=== PATIENT | male | born 1950 | race African-American/Black ===

== ENCOUNTER 2021-03-28 18:24 | Inpatient (IN) | payer MEDICARE, MEDICAID ==
[~2021-03-28] VITALS: Ht 180.3 cm; Wt 69.2 kg
[2021-03-28] MEDS ORDERED: ondansetron/PF 4mg/2ml inj IV ONE (23:50)
[2021-03-28] MEDS ORDERED: normal saline 1000ML IV soln IVB ONE (23:50)
[2021-03-28] MEDS ORDERED: morphine 4 MG/ML inj SYRINge IV PRN (23:50)
[2021-03-29] VITALS (13 sets, daily range): BP systolic 130–154; BP diastolic 83–90
[2021-03-29 00:43] LABS: BASOPHILS # (AUTO) 0.1 X10'3 (0-0.2); BASOPHILS % (AUTO) 0.9 % (0-1); EOSINOPHILS # (AUTO) 0.2 X10'3 (0-0.9); EOSINOPHILS % (AUTO) 3.2 % (0-6); HEMATOCRIT 41.7 % (42.0-52.0); HEMOGLOBIN 14.1 g/dl (14.0-17.9); LYMPHOCYTES # (AUTO) 1.4 X10'3 (1.1-4.8); LYMPHOCYTES % (AUTO) 24.7 % (21-51); MEAN CORPUSCULAR HEMOGLOBIN 33.4 PG (27.0-31.0); MEAN CORPUSCULAR HGB CONC 33.7 g/dL (33.0-36.5); MEAN CORPUSCULAR VOLUME 99.1 FL (78-98); MEAN PLATELET VOLUME 7.9 FL (7.4-10.4); MONOCYTES # (AUTO) 0.8 X10'3 (0-0.9); MONOCYTES % (AUTO) 14.2 % (2-12); NEUTROPHILS # (AUTO) 3.2 X10'3 (1.8-7.7); PLATELET COUNT 223 X10'3 (140-440); RED BLOOD COUNT 4.21 X10'6 (4.70-6.10); RED CELL DISTRIBUTION WIDTH 14.3 % (11.5-14.5); WHITE BLOOD COUNT 5.7 X10'3 (4.5-11.0)
[2021-03-29 00:46] LABS: ALANINE AMINOTRANSFERASE 29 U/L (12-78); ALBUMIN 3.2 G/DL (3.4-5.0); ALBUMIN/GLOBULIN RATIO 0.8 (1.1-1.5); ALKALINE PHOSPHATASE 107 IU/L (46-116); ANION GAP 6 (8-16); ASPARTATE AMINO TRANSFERASE 26 U/L (10-37); BILIRUBIN,TOTAL 0.2 MG/DL (0.1-1.0); BLOOD UREA NITROGEN 18 MG/DL (7-18); BUN/CREATININE RATIO 16.5 (5.4-32.0); CALCIUM 8.7 MG/DL (8.5-10.1); CHLORIDE 109 MMOL/L (99-107); CREATININE 1.09 MG/DL (0.60-1.10); GLUCOSE 109 MG/DL (70-104); POTASSIUM 4.3 MMOL/L (3.5-5.1); SODIUM 144 MMOL/L (135-145); TOTAL CARBON DIOXIDE 29.1 MMOL/L (24-32); TOTAL PROTEIN 7.4 G/DL (6.4-8.2); eGFR 67 ML/MIN
[2021-03-29 00:50] LABS: LIPASE 321 U/L (73-393)
[2021-03-29 01:41] LABS: CLARITY,URINE CLEAR (Clear); COLOR,URINE YELLOW (Yellow); GLUCOSE, URINE NEGATIVE (Neg); KETONES,URINE NEGATIVE (Neg); LEUKOCYTE ESTERASE ,URINE NEGATIVE (Neg); NITRITES, URINE NEGATIVE (Neg); OCCULT BLOOD,URINE NEGATIVE (Neg); PH,URINE 5.5 (4.8-8.0); PROTEIN,URINE NEGATIVE (Neg); UROBILINOGEN,URINE 0.2 E.U/dL (0.2-1.0)
[2021-03-29 01:42] LABS: UA COLLECTION TYPE CLN CATCH MIDSTREAM
[2021-03-29 02:12] LABS: APTT 28 SECONDS (22-32)
[2021-03-29] MEDS ORDERED: ondansetron 4mg rapidly disintigrating tab PO PRN (04:05)
[2021-03-29] MEDS ORDERED: bisacodyl 10mg suppository rectal RC PRN (04:05)
[2021-03-29] MEDS ORDERED: diphenhydrAMINE 50 mg/ml inj IV PRN (04:05)
[2021-03-29] MEDS ORDERED: HYDROcodone/acetaminophen 10/325mg tab PO PRN (04:05)
[2021-03-29] MEDS ORDERED: acetaminophen 325mg tablet PO PRN ×2 (04:05)
[2021-03-29] MEDS ORDERED: morphine 2 MG/ML inj. syringe IV PRN ×3 (04:05→05:05)
[2021-03-29] MEDS ORDERED: diphenhydrAMINE 25mg capsule PO PRN (04:05)
[2021-03-29] MEDS ORDERED: acetaminophen 650mg rectal suppository RC PRN (04:05)
[2021-03-29] MEDS ORDERED: ondansetron/PF 4mg/2ml inj IV PRN ×2 (04:05→05:05)
[2021-03-29] MEDS ORDERED: mag hydrox/Alum hydrox/simeth 30ml oral suspension PO PRN (04:05)
[2021-03-29] MEDS ORDERED: HYDROcodone/acetaminophen 5mg/325mg tablet PO PRN (04:05)
[2021-03-29] MEDS ORDERED: magnesium hydroxide 30ml (MOM) UD suspension PO PRN (04:05)
[2021-03-29 05:01] LABS: MAGNESIUM 2.1 MG/DL (1.5-2.4)
[2021-03-29] MEDS ORDERED: ringers solution, lacted 1,000 ML IV SCH (05:05)
[2021-03-29] MEDS ORDERED: fentaNYL/PF 50MCG/1 ML 2ML syringe IV PRN ×2 (05:05)
[2021-03-29] MEDS ORDERED: hydrALAZINE 20mg/ml inj. IV PRN (05:05)
[2021-03-29] MEDS ORDERED: labetalol 20mg/4ml (5mg/ml) syringe IV PRN (05:05)
[2021-03-29] MEDS ORDERED: morphine 4 MG/ML inj SYRINge IV PRN (05:05)
[2021-03-29] MEDS: dextrose 5%-1/2 normal saline 1,000 ML IV SCH ×2 (05:15→14:05)
[2021-03-29] MEDS ORDERED: midazolam 1 mg/ML 2ml injection ONE (05:42)
[2021-03-29] MEDS ORDERED: fentaNYL/PF 50MCG/1 ML 2ML syringe ONE (05:42)
[2021-03-29] MEDS ORDERED: rocuronium 10mg/ml inj IV ONE (05:44)
[2021-03-29] MEDS ORDERED: propofol inj 20 ML IV ONE (05:44)
[2021-03-29] MEDS ORDERED: ondansetron/PF 4mg/2ml inj ONE (05:44)
[2021-03-29] MEDS ORDERED: LIDOcaine 2% (20mg/ml) 5ml vial ONE (05:44)
[2021-03-29] MEDS ORDERED: glycopyrrolate 0.2mg/ml inj ONE (05:44)
[2021-03-29] MEDS ORDERED: neostigmine methylsulfate 1 MG/ML 10ml vial ONE (06:08)
[2021-03-29] MEDS ORDERED: PHENYLephrine 10mg/ml 5ml injection IV ONE (06:08)
[2021-03-29] MEDS ORDERED: sevoflurane 250ml liquid IH ONE (06:08)
[2021-03-29] MEDS ORDERED: dexamethasone sod phosphate 10mg/ml inj ONE (06:08)
[2021-03-29] MEDS ORDERED: ceFAZolin 1000mg inj ONE ×2 (06:15)
[2021-03-29] MEDS ORDERED: BUPIVAcaine/PF 2.5mg/ml (0.25%) 10ml vial ONE (06:30)
[2021-03-29] MEDS ORDERED: ePHEDrine 50MG/ML INJ. ONE (06:31)
--- NOTE | 2021-03-29 07:27 | NUR ---
Received from OR via BED. 20G RIGHT F/A RUNNING LR, LAP SITES X 2 WITH AMADOU AND DERMABOUND CDI. , accompanied by Anesthesiologist DR MOHAMUD AND CREATIVE ARTS THERAPISTJARETT CALLE. and report given by Anesthesiolgist. Addendum: 03/29/21 at 0744 by Moraima Thacker RN Amended: Links added.
[2021-03-29] MEDS: docusate sod 100mg capsule PO SCH ×2 (08:00→20:54)
[2021-03-29] MEDS: nicotine 21mg patch - 24 hr TD SCH (08:00)
[2021-03-29] MEDS: pantoprazole 40MG/NS 100ML BAG 100 ML IV SCH (08:00)
--- NOTE | 2021-03-29 09:17 | NUR ---
PATIENT HAS MET ALL CRITERIA FOR TRANSFER TO ROOM. VSS. LAP SITES X 2 WITH AMADOU AND DERMABOND CDI. BED LOW, CALL LIGHT PRESENT AND 2 RAILS UP. REPORT HAS BEEN CALLED. ALL QUESTIONS ANSWERED TO ACCEPTING RN. KAREN DENSON AT AND CARE TRANSFERRED Addendum: 03/29/21 at 0932 by Moraima Thacker RN Amended: Links added.
[2021-03-29] MEDS ORDERED: temazepam 15mg capsule PO PRN (21:00)
[2021-03-30] VITALS: BP 131/85
[2021-03-30] MEDS: dextrose 5%-1/2 normal saline 1,000 ML IV SCH ×2 (00:05→09:05)
[2021-03-30 04:00] VITALS: BP 124/70
--- NOTE | 2021-03-30 06:31 | NUR ---
pt ambulated in hallways
[2021-03-30 07:09] LABS: BASOPHILS % (AUTO) 0.2 % (0-1); EOSINOPHILS % (AUTO) 0.3 % (0-6); HEMATOCRIT 36.8 % (42.0-52.0); HEMOGLOBIN 12.6 g/dl (14.0-17.9); LYMPHOCYTES # (AUTO) 0.9 X10'3 (1.1-4.8); LYMPHOCYTES % (AUTO) 10.7 % (21-51); MEAN CORPUSCULAR HEMOGLOBIN 33.8 PG (27.0-31.0); MEAN CORPUSCULAR HGB CONC 34.2 g/dL (33.0-36.5); MEAN CORPUSCULAR VOLUME 98.8 FL (78-98); MEAN PLATELET VOLUME 7.8 FL (7.4-10.4); MONOCYTES # (AUTO) 0.8 X10'3 (0-0.9); MONOCYTES % (AUTO) 10.2 % (2-12); NEUTROPHILS # (AUTO) 6.3 X10'3 (1.8-7.7); NEUTROPHILS % (AUTO) 78.6 % (42-75); PLATELET COUNT 233 X10'3 (140-440); RED BLOOD COUNT 3.73 X10'6 (4.70-6.10); RED CELL DISTRIBUTION WIDTH 14.2 % (11.5-14.5)
[2021-03-30 07:19] LABS: ALANINE AMINOTRANSFERASE 21 U/L (12-78); ALBUMIN 2.7 G/DL (3.4-5.0); ALBUMIN/GLOBULIN RATIO 0.8 (1.1-1.5); ALKALINE PHOSPHATASE 60 IU/L (46-116); ANION GAP 4 (8-16); ASPARTATE AMINO TRANSFERASE 22 U/L (10-37); BILIRUBIN,TOTAL 0.4 MG/DL (0.1-1.0); BLOOD UREA NITROGEN 11 MG/DL (7-18); CALCIUM 8.4 MG/DL (8.5-10.1); CHLORIDE 107 MMOL/L (99-107); CREATININE 0.92 MG/DL (0.60-1.10); GLUCOSE 114 MG/DL (70-104); POTASSIUM 3.8 MMOL/L (3.5-5.1); SODIUM 140 MMOL/L (135-145); TOTAL CARBON DIOXIDE 29.2 MMOL/L (24-32); TOTAL PROTEIN 6.3 G/DL (6.4-8.2); eGFR > 90 ML/MIN
[2021-03-30 08:00] VITALS: BP 118/66
[2021-03-30] MEDS: docusate sod 100mg capsule PO SCH (08:00)
[2021-03-30] MEDS: nicotine 21mg patch - 24 hr TD SCH (08:00)
[2021-03-30] MEDS: pantoprazole 40MG/NS 100ML BAG 100 ML IV SCH (08:00)
--- NOTE | 2021-03-30 09:23 | NUR ---
A&Ox4 pt refused assessment
== END 2021-03-30 09:07 | disposition home or self-care (01) | DRG 351 ==
LOC: ER 18:25 → ED HOLD 03-29 04:07 → SUR 3N 03-29 09:20
PROVIDERS: ADMIT Family Medicine; ATTEND Family Medicine
PROC: 0YU54JZ Supplement Right Inguinal Region with Synthetic Substitute, Percutaneous Endoscopic Approach (ICD-10-PCS; principal; 2021-03-29 06:08)
DX: K40.30 Unilateral inguinal hernia, with obstruction, without gangrene, not specified as recurrent (principal); N17.9 Acute kidney failure, unspecified; Z20.822 Contact with and (suspected) exposure to COVID-19; I12.9 Hypertensive chronic kidney disease with stage 1 through stage 4 chronic kidney disease, or unspecified chronic kidney disease; N50.89 Other specified disorders of the male genital organs; K59.00 Constipation, unspecified; J44.9 Chronic obstructive pulmonary disease, unspecified; M47.815 Spondylosis without myelopathy or radiculopathy, thoracolumbar region; N18.9 Chronic kidney disease, unspecified; N40.0 Benign prostatic hyperplasia without lower urinary tract symptoms; Z72.0 Tobacco use; Z71.6 Tobacco abuse counseling; Z86.16 Personal history of COVID-19
CPT/HCPCS: 36415; 71045; 74176; 76870; 80053; 81003; 83690; 83735; 83880; 84484; 85025; 85610; 85730; 86885; 86900; 86901; 87635; 93005; 93976; 99285; A4215; A4314; A4618; C1727; C1781; C9803; G0378; J0690; J1100; J2250; J2270; J2370; J2405; J2704; J2710; J3010; J3490; J7030; J7042; J7120

== ENCOUNTER 2022-11-06 18:12 | Emergency (ER) | payer MEDICARE, MEDICAID ==
[~2022-11-06] VITALS: Ht 177.8 cm; Wt 68.2 kg
[2022-11-06 19:23] LABS: BASOPHILS % (AUTO) 0.8 % (0-1); EOSINOPHILS # (AUTO) 0.2 X10'3 (0-0.9); EOSINOPHILS % (AUTO) 4.2 % (0-6); HEMATOCRIT 41.5 % (42.0-52.0); HEMOGLOBIN 13.8 g/dl (14.0-17.9); LYMPHOCYTES # (AUTO) 1.3 X10'3 (1.1-4.8); MEAN CORPUSCULAR HEMOGLOBIN 33.4 PG (27.0-31.0); MEAN CORPUSCULAR HGB CONC 33.3 g/dL (33.0-36.5); MEAN CORPUSCULAR VOLUME 100.4 FL (78-98); MEAN PLATELET VOLUME 8.4 FL (7.4-10.4); MONOCYTES # (AUTO) 0.6 X10'3 (0-0.9); MONOCYTES % (AUTO) 10.7 % (2-12); NEUTROPHILS # (AUTO) 3.4 X10'3 (1.8-7.7); NEUTROPHILS % (AUTO) 61.3 % (42-75); PLATELET COUNT 193 X10'3 (140-440); RED BLOOD COUNT 4.14 X10'6 (4.70-6.10); RED CELL DISTRIBUTION WIDTH 13.9 % (11.5-14.5); WHITE BLOOD COUNT 5.6 X10'3 (4.5-11.0)
[2022-11-06 19:35] LABS: ALANINE AMINOTRANSFERASE 44 U/L (12-78); ALBUMIN 3.5 G/DL (3.4-5.0); ALBUMIN/GLOBULIN RATIO 0.9 (1.1-1.5); ALKALINE PHOSPHATASE 77 IU/L (46-116); ANION GAP 2 (8-16); ASPARTATE AMINO TRANSFERASE 43 U/L (10-37); BILIRUBIN,TOTAL 0.5 MG/DL (0.1-1.0); BLOOD UREA NITROGEN 13 MG/DL (7-18); BUN/CREATININE RATIO 11.5 (10.0-20.0); CHLORIDE 105 MMOL/L (99-107); CREATININE 1.13 MG/DL (0.60-1.10); GLUCOSE 179 MG/DL (70-104); POTASSIUM 3.3 MMOL/L (3.5-5.1); SODIUM 140 MMOL/L (135-145); TOTAL CARBON DIOXIDE 32.9 MMOL/L (24-32); TOTAL PROTEIN 7.6 G/DL (6.4-8.2); eCRCL 58 ML/MIN; eGFR 77 ML/MIN
[2022-11-06 19:43] LABS: PRO BRAIN NATRIURETIC PEPTIDE 422 PG/ML (0-125)
[2022-11-06] MEDS ORDERED: dexamethasone sod phosphate 10mg/ml inj IV STA (21:41)
[2022-11-06] MEDS ORDERED: BUDE10.2 INH (21:49)
[2022-11-06] MEDS ORDERED: AZIT-164 PO (21:49)
[2022-11-06] MEDS ORDERED: TIOT18CA3 INH (21:49)
[2022-11-06] MEDS ORDERED: DEC4T PO (21:49)
[2022-11-06] MEDS ORDERED: azithromycin/NS 500mg/250ml 250 ML IV ONE (21:50)
[2022-11-07] VITALS: BP 127/91; PULSE 77; RESP 16; TEMP 98.6; O2SAT 91
== END 2022-11-07 00:03 | disposition home or self-care (01) ==
LOC: ER 18:12
DX: J44.1 Chronic obstructive pulmonary disease with (acute) exacerbation (principal); F17.200 Nicotine dependence, unspecified, uncomplicated; Z79.2 Long term (current) use of antibiotics; Z79.899 Other long term (current) drug therapy
CPT/HCPCS: 36415; 71045; 80053; 83880; 84484; 85025; 93005; 96365; 96375; 99285; J0456; J1100